=== PATIENT | female | born 1950 | race Caucasian/White ===

== ENCOUNTER 2024-07-14 15:05 | Emergency (ER) | payer MEDICARE, OTHER, SELFPAY ==
[2024-07-14] VITALS (7 sets, daily range): BP systolic 153–184; BP diastolic 87–96; BMI 20.8
--- NOTE | 2024-07-14 15:45 | ED.GENMED ---
History of Present Illness
General
Chief Complaint: Abdominal Pain
Source: patient
Time Seen by Provider: 07/14/24 15:23
History of Present Illness
History of Present Illness:
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 Patient started
with a stomach bug 5 days ago with nausea, vomiting, and diarrhea. Several family members are also sick with similar symptoms. These symptoms seemed to have improved although she has not been eating or drinking much over the past few days. She went
to the store today and while she was shopping, she started to have an acute onset of right sided abdominal pain. Pain is severe and non-radiating. She denies any fevers. Previous abdominal surgeries include a small bowel resection, a hysterectomy,
and multiple prior sections.
Past History
Past History
ED Past Medical History: GERD, Hypercholesterolemia, Hypothyroidism and Other (COVID +, Colitis)
ED Past Surgical History: None, (X 3) and Gynecological (Hysterectomy)
Social History
Tobacco: Non-smoker
Alcohol: Occasional
Personal:
Living: with family
Phy Exam
General Physical Exam
General Presentation: well appearing and no apparent distress
General age: appears stated age
General Skin: warm and dry
General Habitus: normal
General Mental: alert
General Hydration: appears well hydrated
ENT Exam
ENT Exam: normocephalic
Cardiovascular Exam
Cardiovascular Exam: regular rate/rhythm
Pulmonary Exam
Pulmonary Exam: no respiratory distress
Gastrointestinal Exam
Gastrointestinal Exam: soft, non distended and other (+Generalized tenderness, worse in RLQ. No rebound or guarding.)
Neurological Exam
Neurological Exam: alert
Kayla Coma Scale
Eye Opening: Spontaneous
Verbal Response: Oriented
Motor Response: Obeys Commands
GCS Total Score: 15
Skin Exam
Skin Exam: normal color and warm/dry
Psychiatric Exam
Psychiatric Exam: normal mood/affect
Course
Orders/Labs/Results
Orders:
Orders
07/14/24 15:43
0.9% Sodium Chloride 500 ml [Nss] 500 ml IV BOLUS
Iohexol [Omnipaque] See Protocol PO NOW STA
07/14/24 15:44
CT Abd/pel W Iv And Oral Contr Urgent
Comment:
Reason For Exam: R sided abd pain
07/14/24 15:47
Ondansetron Injectable [Zofran] 4 mg IV NOW STA
07/14/24 16:19
Complete Blood Count/With Diff Urgent
Comprehensive Metabolic Panel Urgent
Lactate Level [Lactic Acid] Urgent
Lipase Urgent
Magnesium Urgent
07/14/24 16:27
COVID-19 Antigen Urgent
Source: Nasal Swab
Urinalysis Reflex To Culture Urgent
Date Specimen was Collected: 07/14/24
Time Specimen was Collected: 16:26
Influenza A+B Rapid Molecular Urgent
ROSELIA Source: Nasal Swab
Specimen Description:
07/14/24 16:52
Potassium Chloride [KCl] 40 meq PO NOW STA
Abnormal Lab Results
07/14/24
16:19
Monocytes % 11.7 H %
(1.7-9.3)
Potassium 3.2 L mmol/L
(3.5-5.1)
Chloride 108 H mmol/L
(98-107)
Total Protein 6.2 L g/dl
(6.3-8.2)
07/14/24 16:19
07/14/24 16:19
Vital Signs
Initial and Last Documented VS:
Initial Vital Signs
Pulse Resp BP Pulse Ox
99 18 153/93 99
07/14/24 15:07 07/14/24 15:07 07/14/24 15:07 07/14/24 15:07
Last Documented Vital Signs
Temp Pulse Resp BP Pulse Ox
97.9 F 67 18 156/92 99
07/14/24 15:11 07/14/24 19:50 07/14/24 15:07 07/14/24 19:50 07/14/24 19:50
MDM/Problems Addressed
Differential Diagnosis Includes:
73yoF here with R sided abd pain that started about 1 hour [employer]. Currently recovering from a GI bug. Several other family members also sick. Hx of microscopic colitis and prior bowel resection. She is afebrile and hemodynamically stable. She is
non-toxic appearing. No signs of peritonitis on abdominal exam. Differential diagnosis includes but is not limited to: colitis, gastroenteritis, appendicitis, biliary colic, less likely SBO
Initial ED plan: Check abdominal labs, lactate, COVID/flu swab, stool cultures, and CT abdomen with IV/PO contrast. IV Zofran and fluid bolus ordered.
*Critical Care Note
Total Time (30-74mins, 75-104mins- exclusive of procedures): Not Applicable
Update Note
Update Note:
Labs reveal a potassium of 3.2 which was replaced. Remainder of labs unremarkable including normal white count, lactate, renal function. COVID/flu negative. CT shows mild gallbladder hydrops without any associated wall thickening or
pericholecystic fluid. CBD is mildly dilated although LFTs are normal. Tiny pancreatic foci incidentally noted which are nonspecific and may represent cystic structures vs. intraductal papillary mucinous neoplasms. On reassessment, symptoms have
mostly resolved and she feels much better. Discussed incidental findings at length with patient. She was provided with a copy of her radiology report as well as a disc with CT images. No indication for hospitalization at this time. She is from
[place] and is in the area visiting family for the holiday. She was advised to follow-up with gastroenterology and her PCP when she returns home. Strict ED return precautions discussed. She was discharged in stable condition.
ED Attending Note
-
Portions of this chart may have been created with voice recognition software.� Occasional wrong word or��sound alike� substitutions may have occurred due to the inherent limitations of voice recognition software.
Discharge Plan
Departure
Patient Disposition: Home (Routine Discharge)
Date of Disposition: 07/14/24
Time of Disposition: 19:13
Patient with high blood pressure during this ER visit?: Yes
Discharge Problem:
Abdominal pain, Abnormal abdominal CT scan, Nausea
Instructions: Abdominal Pain
Prescriptions:
New
ondansetron 4 mg tablet,disintegrating
4 mg PO Q6H PRN (Reason: nausea and vomiting) Qty: 20 0RF
No Action
gabapentin 600 MG tablet
600 mg PO BID
diphenoxylate-atropine 1 TABLET tablet
1 tab PO Q4HPRN PRN (Reason: diarrhea)
calcium carbonate 600 MG tablet
600 mg PO DAILY
trazodone 100 MG tablet
100 mg PO HS
levothyroxine 50 MCG tablet
50 mcg PO DAILY
hyoscyamine sulfate 0.125 MG tablet
0.125 mg PO QIDPRN PRN (Reason: spasms)
esomeprazole magnesium 40 MG capsule,delayed release(DR/EC)
40 mg PO DAILY
docusate sodium 100 MG capsule
100 mg PO BIDPRN PRN (Reason: constipation)
ipratropium bromide 1 SPRAY spray,non-aerosol
2 spray intranasal TID
brimonidine [Alphagan P] 1 DROP drops
1 drp BOTH EYES BID
timolol maleate (PF) 1 EACH dropperette
1 drp BOTH EYES DAILY
zoledronic azan-onvrojjn-afhlr 5 MG/100 ML piggyback
1 dose IV UD
dqhel-1d-xcg-epa-fish oil 1 EACH capsule
1 cap PO DAILY
latanoprostene bunod [Vyzulta] 5 ML drops
1 drp BOTH EYES DAILY
Rituximab Infus..Btl
1 dose IV MONTHLY
albuterol sulfate 1 PUFF HFA aerosol inhaler
2 puff inhalation R Q4HPRN PRN (Reason: shortness of breath or wheeze) 14 Days Qty: 1 0RF
benzonatate 100 MG capsule
100 mg PO TIDPRN PRN (Reason: severe cough ) 10 Days Qty: 30 0RF
latanoprost 1 DROP drops
1 drp BOTH EYES HS
lamotrigine 25 MG tablet, chewable dispersible
50 mg PO HS
simvastatin 20 MG tablet
20 mg PO QPM
acetaminophen 325 MG tablet
650 mg PO Q4HPRN PRN (Reason: mild pain)
aspirin 81 MG tablet,delayed release (DR/EC)
81 mg PO DAILY
tramadol 50 MG tablet
50 mg PO Q8HPRN PRN (Reason: severe pain)
Patient Comments:
[place] 02/14/21 #90
ascorbic acid (vitamin C) [Vitamin C] 500 MG tablet
500 mg PO DAILY
naproxen sodium [Aleve] 220 MG tablet
440 mg PO BIDPRN PRN (Reason: mild pain)
magnesium oxide 250 MG tablet
250 mg PO DAILY
Lactobac 2-Bifido 1-S. therm [High Potency Probiotic] 1 CAP capsule
1 cap PO DAILY
cholecalciferol (vitamin D3) 2,000 UNITS tablet
2,000 units PO DAILY
guaifenesin [Mucus Relief ER] 600 MG tablet extended release 12hr
600 mg PO BID
vitamin E (dl, acetate) 100 UNITS capsule
100 units PO DAILY
duloxetine 60 MG capsule,delayed release(DR/EC)
60 mg PO DAILY
Referrals:
NONE,* [Family Provider] -
Activity Restrictions/Additional Instructions:
Please follow-up with gastroenterology when you return home regarding the abnormal findings on your CT scan. You should also follow-up with your family doctor for blood pressure recheck.
Return to the ER with any worsening symptoms, severe pain, fevers, chills, jaundice.
Interventions
Interventions:
*Risk Screen - Suicide Last Done: 07/14/24 16:29
*General Assessment Last Done: 07/14/24 16:29
*Neglect/Abuse Screening Last Done: 07/14/24 16:29
ED- Fall Risk Assessment Last Done: 07/14/24 20:04
*ED COVID-19 Vaccine History Last Done: 07/14/24 16:29
*Nursing Disposition Last Done: 07/14/24 20:04
RD-Emamtv-Evdsbvjafe Assessment Last Done: 07/14/24 16:38
Discharge Date and Time
Discharge Date/Time: 07/14/24 20:05
Print Language: NIGERIAN
[2024-07-14] MEDS: OMNIPAQUE 50 ML PO (16:14)
[2024-07-14] MEDS: NSS 500 IV (16:15)
[2024-07-14] MEDS: ZOFRAN 4 MG IV (16:15)
[2024-07-14 16:32] LABS: % Basophils 0.6 % (0-2); % Eosinophils 1.3 % (0-6); % Immature Granulocytes 0.4 % (0-0.5); % Lymphocytes 30.9 % (20.5-51.1); % Monocytes 11.7 % (1.7-9.3); % Neutrophils 55.1 % (42.2-75.2); Absolute Eosinophils 0.1 10^3/uL (0-0.7); Absolute Lymphocytes 1.7 10^3/uL (1.2-3.4); Absolute Monocytes 0.6 10^3/uL (0.1-0.6); Hematocrit 41.2 % (37.0-47.0); Hemoglobin 13.9 g/dL (12.0-16.0); Mean Corp Hgb Conc. 33.7 g/dL (33.0-37.0); Mean Corpuscular Hgb 29.9 pg (27.0-31.0); Mean Corpuscular Volume 88.6 fL (81.0-99.0); Mean Platelet Volume 9.5 fL (7.4-10.4); Nucleated Red Blood Cells % 0 %; Platelet Count 252 10^3/uL (130-400); Red Blood Cell Count 4.65 10^6/uL (4.20-5.40); Red Cell Dist. Width 14.2 % (11.5-14.5); White Blood Cell Count 5.4 10^3/uL (4.8-10.8)
[2024-07-14 16:45] LABS: Lactic Acid 1.3 mmol/L (0.7-2.0)
[2024-07-14 16:47] LABS: Urine Albumin Negative (Neg - Trace); Urine Bilirubin Negative (Negative); Urine Character Clear (Clear); Urine Color Yellow; Urine Glucose Negative (Negative); Urine Ketone Negative (Negative); Urine Leukocyte Negative (Negative); Urine Nitrite Negative (Negative); Urine Occult Blood Negative (Negative); Urine Specific Gravity 1.005 (<1.030); Urine Urobilinogen Negative (Neg - 1+)
[2024-07-14 16:51] LABS: ALT (SGPT) 21 U/L (0-35); AST (SGOT) 22 U/L (14-36); Albumin 4.1 g/dl (3.5-5.0); Alkaline Phosphatase 42 U/L (38-126); Blood Urea Nitrogen 11 mg/dl (7-17); Calcium 9.1 mg/dl (8.4-10.2); Carbon Dioxide 23 mmol/L (22-30); Chloride 108 mmol/L (98-107); Estimated Creatinine Clearance 65 ml/min; Glucose 91 mg/dl (70-99); Lipase 110 U/L (23-300); Potassium 3.2 mmol/L (3.5-5.1); Sodium 141 mmol/L (135-145); Total Bilirubin 0.3 mg/dl (0.2-1.3); Total Protein 6.2 g/dl (6.3-8.2); eGFR > 60.00
[2024-07-14 17:03] LABS: COVID-19 Antigen Negative (Negative)
[2024-07-14] MEDS: KCL 40 MEQ PO (17:40)
== END 2024-07-14 20:05 | disposition home or self-care (01) ==
LOC: EMR 15:05
PROVIDERS: Physician Assistant; EMERGENCY PHYSICIAN Emergency Medicine
DX: R10.9 Unspecified abdominal pain (principal); R11.0 Nausea; R93.5 Abnormal findings on diagnostic imaging of other abdominal regions, including retroperitoneum; K82.1 Hydrops of gallbladder; Z11.52 Encounter for screening for COVID-19; E78.00 Pure hypercholesterolemia, unspecified; K21.9 Gastro-esophageal reflux disease without esophagitis; E03.9 Hypothyroidism, unspecified; K52.9 Noninfective gastroenteritis and colitis, unspecified; Z86.16 Personal history of COVID-19; Z79.899 Other long term (current) drug therapy; Z79.82 Long term (current) use of aspirin; Z98.0 Intestinal bypass and anastomosis status; Z88.6 Allergy status to analgesic agent; Z88.1 Allergy status to other antibiotic agents; Z88.5 Allergy status to narcotic agent; Z88.2 Allergy status to sulfonamides; Z88.8 Allergy status to other drugs, medicaments and biological substances
CPT/HCPCS: 99284; 96374; 74177; 80053; 81003; 83605; 83690; 83735; 85025; 87502; 87811; Q9967